=== PATIENT | female | born 1945 | race Hispanic/Latino ===

== ENCOUNTER 2018-01-29 20:29 | Emergency (ER) | payer OTHER ==
[~2018-01-29] VITALS: Ht 157.5 cm; Wt 83.9 kg
--- OUTSIDE RECORDS SUMMARY | 2018-01-29 20:32 | XMS REPORT ---
Author Author Dot Hall Organization [employer] Address Unknown Phone Unavailable Care Team Providers Care Safety Intern Name Role Phone Dot Hall CP Unavailable Allergies No Known Allergies Problems Problem Type Condition Code Onset Dates Condition Status Problem PVD (peripheral vascular disease) with claudication I73.9 Active Problem HTN (hypertension), benign I10 Active Assessment SOB (shortness of breath) R06.02 Active Assessment HTN (hypertension), benign I10 Active Assessment PVD (peripheral vascular disease) with claudication I73.9 Active Assessment Right lower quadrant abdominal pain R10.31 Active Medications No Known Medications Results No Known Results Summary Purpose [employer] Submission
--- OUTSIDE RECORDS SUMMARY | 2018-01-29 20:32 | XMS REPORT ---
Author Author Dot Hall Organization [employer] Address Unknown Phone Unavailable Care Team Providers Care Test Analyst Name Role Phone Dot Hall CP Unavailable Allergies, Adverse Reactions, Alerts Substance Reaction Event Type Tramadol HCl Info Not Available Drug Allergy Morphine Sulfate Info Not Available Drug Allergy Hydrocodone-Ibuprofen Info Not Available Drug Allergy Hydrocodone Bitartrate Info Not Available Drug Allergy Darvon Info Not Available Drug Allergy Darvocet A500 Info Not Available Drug Allergy Codeine Sulfate Info Not Available Drug Allergy Acetaminophen-Codeine #3 Info Not Available Drug Allergy Problems Problem Type Condition Code Onset Dates Condition Status Problem PVD (peripheral vascular disease) with claudication I73.9 Active Problem HTN (hypertension), benign I10 Active Assessment SOB (shortness of breath) R06.02 Active Assessment HTN (hypertension), benign I10 Active Assessment PVD (peripheral vascular disease) with claudication I73.9 Active Assessment Right lower quadrant abdominal pain R10.31 Active Medications Medication Code System Code Instructions Start Date End Date Status Dosage Metformin HCl ND 47650279532 1000 MG Orally Once a day Active 4 tablet with a meal Metoprolol Succinate ER ND 62814463826 25 MG Orally twice a day Active 1 tablet Aspirin 81 ND 52263734545 81 MG Orally Once a day Active 1 tablet Amlodipine Besylate ND 31648084741 5 MG Orally Once a day Active 1 tablet Gabapentin ND 85655824088 300 MG Orally Once a day Active 2 capsule Losartan Potassium ND 38762609314 100 MG Orally Once a day Active 1 tablet Nexium ND 60258485306 40 MG Orally Once a day Active 1 capsule Lasix ND 15930794891 20 MG Orally Once a day Active 1 tablet Clopidogrel Bisulfate ND 51271462172 75 MG Orally Once a day Active 1 tablet Vital Signs Date/Time: Jan 04, 2018 BMI 30.95 Index Weight 172 lbs Height 62.5 in Cardiac Monitoring Heart Rate 70 /min Blood Pressure Diastolic 80 mm Hg Blood Pressure Systolic 130 mm Hg Results No Known Results Summary Purpose [employer] Submission
--- OUTSIDE RECORDS SUMMARY | 2018-01-29 20:32 | XMS REPORT | Clinical Summary ---
Author Author [facility] Organization [facility] Address Unknown Phone Unavailable Care Team Providers Care Defense Analyst Name Role Phone Yuri Arrieta MD PCP Allergies Comments Active Allergy Reactions Severity Noted Date Clarithromycin 05/25/2013 Codeine 05/25/2013 Propoxyphene GI 05/25/2013 N-Acetaminophen Intolerance Propoxyphene GI 05/01/2016 Intolerance Meperidine GI Medium 05/01/2016 Intolerance Morphine GI Low 05/01/2016 Intolerance Critical Morphine Sulfate 02/19/2016 Tramadol 05/25/2013 Medications End Date Status Medication Sig Dispensed Refills Start Date Active metFORMIN (GLUCOPHAGE) Take 1,000 mg 0 500 mg tablet by mouth 2 6 (two) times a day. Active gabapentin (NEURONTIN) Take 1 0 300 mg capsule capsule by 6 mouth 2 (two) times a day. Active losartan (COZAAR) 100 MG Take 100 mg 0 tablet by mouth 7 every morning. Active esomeprazole (NexIUM) 40 Take 40 mg by 0 MG capsule mouth daily before breakfast. Active aspirin (ECOTRIN) 81 MG Take 81 mg by 0 enteric coated tablet mouth every morning. Active furosemide (LASIX) 20 mg Take 20 mg by 0 tablet mouth every 8 morning. Active metoprolol succinate XL Take 25 mg by 0 (TOPROL-XL) 25 mg 24 hr mouth every 8 tablet morning. 05/20/2018 Active oxybutynin XL (DITROPAN Take 1 tablet 30 tablet 3 XL) 10 MG 24 hr (10 mg total) 8 tabletIndications: by mouth Urinary urgency, Mixed daily. incontinence Active estradiol (ESTRACE) 0.01 Insert 0.5 42.5 g 1 % (0.1 mg/gram) vaginal gram 8 creamIndications: Vaginal vaginally atrophy every night for 2 weeks, then after insert 0.5 gram 3 times per week at night. Active amLODIPine (NORVASC) 5 mg Take 5 mg by 0 tablet mouth every morning. Active clopidogrel (PLAVIX) 75 Take 75 mg by 0 mg tablet mouth daily. 05/20/2017 Discontinued clopidogrel (PLAVIX) 75 Take 1 tablet 0 mg tablet by mouth 6 daily. 05/20/2017 Discontinued amLODIPine (NORVASC) 5 mg Take 5 mg by 0 tablet mouth daily. 06/14/2017 Discontinued amLODIPine (NORVASC) 10 0 mg tablet 7 05/20/2017 Discontinued pravastatin (PRAVACHOL) Take 10 mg by 0 10 MG tablet mouth. 7 05/20/2017 Discontinued esomeprazole (NexIUM) 40 Take 40 mg by 0 MG capsule mouth. 05/20/2017 Discontinued gabapentin (NEURONTIN) 0 300 mg capsule 6 05/20/2017 Discontinued losartan (COZAAR) 100 MG 0 tablet 7 05/20/2017 Discontinued metFORMIN (GLUCOPHAGE) Take 500 mg 0 500 mg tablet by mouth. 05/20/2017 Discontinued clotrimazole-betamethason Apply 45 g 0 e (LOTRISONE) 1-0.05 % topically 2 8 creamIndications: Tinea (two) times a Corporis day for 20 days. Active Problems Problem Noted Date Mesenteric ischemia 06/14/2017 Vaginal atrophy 05/20/2017 Fecal urgency 05/20/2017 Urinary urgency 05/20/2017 Mixed incontinence 05/20/2017 Incomplete bladder emptying 05/20/2017 Right lower quadrant pain 05/20/2017 Bladder spasms 05/06/2017 Encounters Care Team Description Date Type Specialty Laura Snell RN Records and 2 CDs received (Records and 2 CDs received) 09/21/2017 Documentation Cardiovascular Wan Geller MD Mesenteric ischemia (Primary Dx) 09/15/2017 Office Visit Cardiovascular Roxanna Willis 09/15/2017 Telephone Cardiovascular Laura Snell RN New Referral for Dr. Geller from Dr. Álvarez (New Referral for Dr. Geller from Dr. Álvarez) 08/31/2017 Documentation Cardiovascular Ezequiel Hall MD COLONOSCOPY & EGD 06/16/2017 Surgery Gastroenterology YouRajendra 06/16/2017 Anesthesia Gastroenterology Event Norma Arenas MD Kohlnhofer, Matthew, MD Mesenteric ischemia (Primary Dx) 06/14/2017 [facility] General Internal Medicine - Encounter 06/16/2017 Mirian Cohen MA 06/11/2017 Telephone Urogynecology Mirian Cohen MA 06/11/2017 Orders Only Urogynecology Anisa Foreman MD Abdominal pain, unspecified abdominal location (Primary Dx) 06/10/2017 Telephone Urogynecology Anisa Foreman MD 06/07/2017 Telephone Urogynecology Anisa Foreman MD Nocturia (Primary Dx); Vaginal atrophy; Fecal urgency; Urinary urgency; Mixed incontinence; Incomplete bladder emptying; Right lower quadrant pain 05/20/2017 Office Visit Urogynecology Alla Guerrier MD Screening breast examination 05/06/2017 Hospital Radiology Encounter Faviola Blackmon MD Pap smear for cervical cancer screening (Primary Dx); Tinea corporis; Bladder spasms; Hematuria, unspecified type; Urinary frequency 05/06/2017 Office Visit Obstetrics and Gynecology Alla Guerrier MD 05/06/2017 Transcribe Radiology Orders after 01/28/2017 Family History Medical History Relation Name Comments Heart disease Brother Colon polyps Brother Esophageal cancer Father Diabetes Mother Heart disease Mother Kidney disease Mother Breast cancer Sister Hepatitis Sister Relation Name Status Comments Brother Brother Alive Father Mother (Age 55) Sister Sister Alive Sister Alive Social History Date Tobacco Use Types Packs/Day Years Used Never Smoker Smokeless Tobacco: Never Used Alcohol Use Drinks/Week oz/Week Comments No Sex Assigned at Date Recorded Not on file Industry Job Start Date Occupation Not on file Not on file Not on file Travel End Travel History Travel Start No recent travel history available. Last Filed Vital Signs Time Taken Vital Sign Reading 09/15/2017 8:34 AM CDT Blood Pressure 146/69 09/15/2017 8:34 AM CDT Pulse 93 09/15/2017 8:34 AM CDT Temperature 36.3 C (97.3 F) 06/16/2017 11:39 AM CDT Respiratory Rate 20 06/16/2017 11:39 AM CDT Oxygen Saturation 95% - Inhaled Oxygen - Concentration 09/15/2017 8:34 AM CDT Weight 78.5 kg (173 lb) 09/15/2017 8:34 AM CDT Height 157.5 cm (5' 2") 09/15/2017 8:34 AM CDT Body Mass Index 31.64 Plan of Treatment Health Maintenance Due Date Last Done Comments COLON CANCER SCREENING 1997 SHINGRIX VACCINE (1 of 2) 1997 ZOSTER VACCINE 2007 PNEUMOCOCCAL 2012 POLYSACCHARIDE VACCINE AGE 65 AND OVER INFLUENZA VACCINE 09/29/2017 12/14/2015 BREAST CANCER SCREENING 05/07/2019 05/06/2017 PNEUMOCOCCAL-13 Completed 02/25/2016 Procedures Comments Procedure Name Priority Date/Time Associated Diagnosis ESOPHAGOGASTRODUODENOSCOP 06/16/2017 epigastric pain, history Y (EGD) 9:15 AM CDT of austin's esophagus COLONOSCOPY 06/16/2017 epigastric pain, history 9:15 AM CDT of austin's esophagus SURGICAL PATHOLOGY Routine 06/16/2017 REQUEST 7:24 AM CDT ZZESTIMATED GFR Routine 06/16/2017 4:14 AM CDT BASIC METABOLIC PANEL Routine 06/16/2017 4:14 AM CDT HC COMPLETE BLD COUNT Routine 06/16/2017 W/AUTO DIFF 4:14 AM CDT ZZESTIMATED GFR Routine 06/15/2017 5:12 AM CDT BASIC METABOLIC PANEL Routine 06/15/2017 5:12 AM CDT CBC WITH PLATELET AND Routine 06/15/2017 DIFFERENTIAL 5:12 AM CDT ANTI XA, UNFRACTIONATED Routine 06/14/2017 6:15 PM CDT LACTIC ACID LEVEL, SEPSIS Timed 06/14/2017 - NOW AND REPEAT 2X EVERY 4:00 PM CDT 3 HOURS TROPONIN Timed 06/14/2017 1:08 PM CDT LACTIC ACID LEVEL, SEPSIS Timed 06/14/2017 - NOW AND REPEAT 2X EVERY 1:08 PM CDT [address] ANGIOGRAM ABDOMEN STAT 06/14/2017 PELVIS W AND OR WO 12:44 PM CDT CONTRAST ZZESTIMATED GFR STAT 06/14/2017 9:48 AM CDT TROPONIN STAT 06/14/2017 9:48 AM CDT LIPASE LEVEL STAT 06/14/2017 9:48 AM CDT LACTIC ACID LEVEL, SEPSIS STAT 06/14/2017 - NOW AND REPEAT 2X EVERY 9:48 AM CDT 3 HOURS COMPREHENSIVE METABOLIC STAT 06/14/2017 PANEL 9:48 AM CDT TYPE AND SCREEN Routine 06/14/2017 9:48 AM CDT PARTIAL THROMBOPLASTIN STAT 06/14/2017 TIME (PTT) 9:48 AM CDT PROTHROMBIN TIME WITH INR STAT 06/14/2017 9:48 AM CDT HC COMPLETE BLD COUNT STAT 06/14/2017 W/AUTO DIFF 9:48 AM CDT ECG 12-LEAD STAT 06/14/2017 9:42 AM CDT POC URINALYSIS DIPSTICK Routine 05/20/2017 Nocturia 12:11 PM CDT MAMMO BREAST SCREEN Routine 05/06/2017 Screening breast TOMOSYNTHESIS BILATERAL 5:20 PM [employer]UM[employer] RELATIONS COORDINATOR examination PAP IG, RFX HPV ASCU Routine 05/06/2017 Pap smear for cervical 3:50 PM ALUMNI RELATIONS COORDINATOR cancer screening after 01/28/2017 Results * Surgical pathology request (06/16/2017 7:24 AM CDT) [facility] DEPARTMENT OF PATHOLOGY AND GENOMIC MEDICINE Surgical pathology report See link below for PDF Lab [facility] DEPARTMENT OF Report PATHOLOGY AND GENOMIC MEDICINE Result status This is Final Report to [facility] DEPARTMENT OF [id number] PATHOLOGY AND GENOMIC MEDICINE Performing Organization Address [facility] Phone Number [address] [place] [address] PATHOLOGY AND GENOMIC MEDICINE * Estimated GFR (06/16/2017 4:14 AM CDT) Only the most recent of 3 results within the time period is included. GFR Non Af Amer >90 mL/min/1.73 m2 [facility] DEPARTMENT OF PATHOLOGY AND GENOMIC MEDICINE GFR Af Amer >90 mL/min/1.73 m2 [facility] DEPARTMENT OF Comment: PATHOLOGY AND Chronic kidney disease: <60 GENOMIC MEDICINE mL/min/1.73m2 Kidney failure: <15 mL/min/1.73m2 The estimated GFR is calculated from the IDMS-traceable Modification of Diet in Renal Disease Equation. The accuracy of the calculation is poor when the creatinine is normal. Calculated values >90 mL/min/1.73m2 are not reported. This equation has not been validated in children (<18 years), women, the elderly (>70 years), or ethnic groups other than Caucasians and Americans. Specimen Plasma specimen Performing Organization Address [facility] Phone Number [address] [place] [address] PATHOLOGY AND [employer] [facility] * CBC with platelet and differential (06/16/2017 4:14 AM CDT) Only the most recent of 3 results within the time period is included. WBC 8.67 4.50 - 11.00 k/uL [facility] DEPARTMENT OF PATHOLOGY AND GENOMIC MEDICINE RBC 4.13 (L) 4.20 - 5.50 m/uL [facility] DEPARTMENT OF PATHOLOGY AND GENOMIC MEDICINE HGB 12.3 12.0 - 16.0 g/dL [facility] DEPARTMENT OF PATHOLOGY AND GENOMIC MEDICINE HCT 38.1 37.0 - 47.0 % [facility] DEPARTMENT OF PATHOLOGY AND GENOMIC MEDICINE MCV 92.3 82.0 - 100.0 fL [facility] DEPARTMENT OF PATHOLOGY AND GENOMIC MEDICINE MCH 29.8 27.0 - 34.0 pg [facility] DEPARTMENT OF PATHOLOGY AND GENOMIC MEDICINE MCHC 32.3 31.0 - 37.0 g/dL [facility] DEPARTMENT OF PATHOLOGY AND GENOMIC MEDICINE RDW - SD 43.3 37.0 - 55.0 fL [facility] DEPARTMENT OF PATHOLOGY AND GENOMIC MEDICINE MPV 11.0 8.8 - 13.2 fL [facility] DEPARTMENT OF PATHOLOGY AND GENOMIC MEDICINE Platelet count 235 150 - 400 k/uL [facility] DEPARTMENT OF PATHOLOGY AND GENOMIC MEDICINE Nucleated RBC 0.00 /100 WBC [facility] DEPARTMENT OF PATHOLOGY AND GENOMIC MEDICINE Neutrophils 51.5 39.0 - 69.0 % [facility] DEPARTMENT OF PATHOLOGY AND GENOMIC MEDICINE Lymphocytes 39.3 25.0 - 45.0 % [facility] DEPARTMENT OF PATHOLOGY AND GENOMIC MEDICINE Monocytes 5.9 0.0 - 10.0 % [facility] DEPARTMENT OF PATHOLOGY AND GENOMIC MEDICINE Eosinophils 2.8 0.0 - 5.0 % [facility] DEPARTMENT OF PATHOLOGY AND GENOMIC MEDICINE Basophils 0.3 0.0 - 1.0 % [facility] DEPARTMENT OF PATHOLOGY AND GENOMIC MEDICINE Specimen Blood Performing Organization Address City/State/Zipcode Phone Number [facility] [place] [address] [place] [address] PATHOLOGY AND GENOMIC MEDICINE * Basic metabolic panel (06/16/2017 4:14 AM CDT) Only the most recent of 2 results within the time period is included. Sodium 140 135 - 148 mEq/L [facility] DEPARTMENT OF PATHOLOGY AND GENOMIC MEDICINE Potassium 3.5 3.5 - 5.0 mEq/L [facility] DEPARTMENT OF PATHOLOGY AND GENOMIC MEDICINE Chloride 102 98 - 112 mEq/L [facility] DEPARTMENT OF PATHOLOGY AND GENOMIC MEDICINE CO2 26 24 - 31 mEq/L [facility] DEPARTMENT OF PATHOLOGY AND GENOMIC MEDICINE Anion gap 12 7 - 15 mEq/L [facility] DEPARTMENT OF Comment: PATHOLOGY AND Starting from May [facility] , anion gap calculation no longer incorporates potassium. Please note the change. BUN 9 8 - 23 mg/dL [facility] DEPARTMENT OF PATHOLOGY AND GENOMIC MEDICINE Creatinine 0.6 0.5 - 0.9 mg/dL [facility] DEPARTMENT OF PATHOLOGY AND GENOMIC MEDICINE Glucose 129 (H) 65 - 99 mg/dL [facility] DEPARTMENT OF PATHOLOGY AND GENOMIC MEDICINE Calcium 8.8 8.8 - 10.2 mg/dL [facility] DEPARTMENT OF PATHOLOGY AND GENOMIC MEDICINE Specimen Plasma specimen Performing Organization Address [facility] Phone Number [address] [place] [address] PATHOLOGY AND GENOMIC MEDICINE * Anti Xa, unfractionated (06/14/2017 6:15 PM CDT) Anti Xa, unfractionated <0.10 (L)Comment: Therapeutic 0.30 - 0.70 U/mL [facility] DEPARTMENT OF Range: 0.30 - 0.70 U/mL PATHOLOGY AND GENOMIC MEDICINE Specimen Blood Performing Organization Address [facility] Number [address] [place] [address] PATHOLOGY AND [employer] [facility] * Lactic acid level, SEPSIS - Now and repeat 2x every 3 hours (06/14/2017 4:00 PM CDT) Only the most recent of 3 results within the time period is included. Lactic acid 1.5 0.5 - 2.2 mmol/L [facility] DEPARTMENT OF PATHOLOGY AND [employer] [facility]ICINE Specimen Plasma specimen Performing Organization Address [facility] Number [address] [place] [address] PATHOLOGY AND [employer] [facility] * Troponin (06/14/2017 1:08 PM CDT) Only the most recent of 2 results within the time period is included. Troponin <0.300 0.000 - 0.300 ng/mL [facility] DEPARTMENT OF Comment: PATHOLOGY AND 0.30 - 1.49 GENOMIC MEDICINE ng/mlMay indicate increased risk of acute coronary syndrome. >=1.5 ng/ml Consistent with acute myocardial infarction. The diagnostic value of a single normal or non-diagnostic result is questionable.Serial samples at 2-6 hour intervals are required to rule out acute myocardial injury. Specimen Plasma specimen Performing Organization Address [facility] Phone Number [address] [place] [address] PATHOLOGY AND [employer] [facility] * CTA Abdomen Pelvis W And Or Wo Contrast (06/14/2017 12:44 PM CDT) Addenda Addendum by Lane Bingham MD on 06/14/2017 1:36 PM ADDENDUM #1 There is a high-grade stenosis of the superior mesenteric artery is not superficial femoral artery. This occurs 6 to 7 cm distal to the origin Narrative Performed At EXAMINATION:CT ANGIOGRAM ABDOMEN PELVIS W AND OR WO CONTRAST RADIANT CLINICAL HISTORY:ATHEROSCLERIOSISUNSPECIFIED, mesenteric ischemia TECHNIQUE: Multiple CT angiographic images of the abdomen and pelvis were obtained during intravenous administration of contrast. Multiple computerized reformatted images as well as 3-D volume rendered images were also obtained.Precontrast images of the abdomen were also obtained. COMPARISON:None. Visceral compartment: The lung bases demonstrate areas of mild groundglass attenuation greater in the posterior costophrenic sulci. These findings have appeared since the prior examination but are nonspecific but may be seen in inflammatory disease and heart failure. No specific changes of heart failure are identified however. The liver appears normal in size and homogeneous in texture. The adrenal glands, pancreas and kidneys appear within normal limits. There is moderate gas and stool present within the colon. The gallbladder is not visualized... The gallbladder fossa are consistent with a previous cholecystectomy. The uterus is not visualized. The ovaries are not visualized. There is diverticulosis There is calcification at the bladder base of uncertain etiology although minimally changed from previous plaster structures: There is no evidence of aneurysm or dissection. There is a densely calcified plaque and stenosis of on the order of 50% at the origin of the celiac axis. This is an ostial stenosis. The SMA has a stenosis of less than 50% at its origin however more distally there is a high-grade stenosis of 80% or greater of the SMA approximately 6 to 7 cm distal to its origin. The vessels distally however to opacify and complete occlusion is not present. The inferior mesenteric artery appears patent the limits of visualization although calcified plaque is present. The iliac and femoral circulations appear patent to the limits of visualization. IMPRESSION: 1. 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 Moderate stenosis although less than 50% of the celiac axis at its origin and a mild stenosis at the origin of the SMA. 3. Patency of the JONNY 3. Areas of groundglass attenuation at both lung bases which are nonspecific [id number] Procedure Note Interface, Radiology Results Incoming - 06/14/2017 1:21 PM CDT EXAMINATION: CT ANGIOGRAM ABDOMEN PELVIS W AND OR WO CONTRAST CLINICAL HISTORY: ATHEROSCLERIOSIS UNSPECIFIED, mesenteric ischemia TECHNIQUE: Multiple CT angiographic images of the abdomen and pelvis were obtained during intravenous administration of contrast. Multiple computerized reformatted images as well as 3-D volume rendered images were also obtained. Precontrast images of the abdomen were also obtained. COMPARISON: None. Visceral compartment: The lung bases demonstrate areas of mild groundglass attenuation greater in the posterior costophrenic sulci. These findings have appeared since the prior examination but are nonspecific but may be seen in inflammatory disease and heart failure. No specific changes of heart failure are identified however. The liver appears normal in size and homogeneous in texture. The adrenal glands, pancreas and kidneys appear within normal limits. There is moderate gas and stool present within the colon. The gallbladder is not visualized... The gallbladder fossa are consistent with a previous cholecystectomy. The uterus is not visualized. The ovaries are not visualized. There is diverticulosis There is calcification at the bladder base of uncertain etiology although minimally changed from previous plaster structures: There is no evidence of aneurysm or dissection. There is a densely calcified plaque and stenosis of on the order of 50% at the origin of the celiac axis. This is an ostial stenosis. The SMA has a stenosis of less than 50% at its origin however more distally there is a high-grade stenosis of 80% or greater of the SMA approximately 6 to 7 cm distal to its origin. The vessels distally however to opacify and complete occlusion is not present. The inferior mesenteric artery appears patent the limits of visualization although calcified plaque is present. The iliac and femoral circulations appear patent to the limits of visualization. IMPRESSION: 1. 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 Moderate stenosis although less than 50% of the celiac axis at its origin and a mild stenosis at the origin of the SMA. 3. Patency of the JONNY 3. Areas of groundglass attenuation at both lung bases which are nonspecific [id number] Performing Organization Address City/State/Zipcode Phone Number [facility] [address] [place] [address] * Partial thromboplastin time, activated (06/14/2017 9:48 AM CDT) PTT 31.9 23.0 - 36.0 sec [facility] DEPARTMENT OF Comment: PATHOLOGY AND PTT therapeutic range for [employer] [facility] unfractionated heparin is 61.0-112.0 seconds which corresponds to Anti-Xa 0.3-0.7 U/ml. Specimen Blood Performing Organization Address [facility] Phone Number [address] [place] [address] PATHOLOGY AND [facility] * Prothrombin time with INR (06/14/2017 9:48 AM CDT) Prothrombin time 12.8 12.0 - 15.0 sec [facility] DEPARTMENT OF PATHOLOGY AND GENOMIC MEDICINE INR 1.0 [facility] DEPARTMENT OF Comment: PATHOLOGY AND The International Normalized [facility] Ratio (INR) is a therapeutic monitoring tool for patients who are stable on oral anticoagulant therapy. An INR of 2.0-3.0 is suggested for deep vein thrombosis/pulmonary embolism. Specimen Blood Performing Organization Address [facility] Phone Number [address] [place] [address] PATHOLOGY AND GENOMIC MEDICINE * Type and screen (06/14/2017 9:48 AM CDT) ABO grouping O [facility] DEPARTMENT OF PATHOLOGY AND GENOMIC MEDICINE Rh type POS [facility] DEPARTMENT OF PATHOLOGY AND GENOMIC MEDICINE Antibody screen NEG [facility] DEPARTMENT OF PATHOLOGY AND GENOMIC MEDICINE Specimen Blood Performing Organization Address [facility] Phone Number [address] [place] [address] PATHOLOGY [facility] * Lipase level (06/14/2017 9:48 AM CDT) Lipase 36 13 - 60 U/L [facility] DEPARTMENT OF PATHOLOGY AND GENOMIC MEDICINE Specimen Plasma specimen Performing Organization Address [facility] Phone Number [address] [place] [address] PATHOLOGY AND [facility] * Comprehensive metabolic panel (06/14/2017 9:48 AM CDT) Sodium 141 135 - 148 mEq/L [facility] DEPARTMENT OF PATHOLOGY AND GENOMIC MEDICINE Potassium 3.8 3.5 - 5.0 mEq/L [facility] DEPARTMENT OF PATHOLOGY AND GENOMIC MEDICINE Chloride 99 98 - 112 mEq/L [facility] DEPARTMENT OF PATHOLOGY AND GENOMIC MEDICINE CO2 27 24 - 31 mEq/L [facility] DEPARTMENT OF PATHOLOGY AND GENOMIC MEDICINE Anion gap 15 7 - 15 mEq/L [facility] DEPARTMENT OF Comment: PATHOLOGY AND Starting from May [facility] , anion gap calculation no longer incorporates potassium. Please note the change. BUN 14 8 - 23 mg/dL [facility] DEPARTMENT OF PATHOLOGY AND GENOMIC MEDICINE Creatinine 0.6 0.5 - 0.9 mg/dL [facility] DEPARTMENT OF PATHOLOGY AND GENOMIC MEDICINE Glucose 172 (H) 65 - 99 mg/dL [facility] DEPARTMENT OF PATHOLOGY AND GENOMIC MEDICINE Calcium 9.8 8.8 - 10.2 mg/dL [facility] DEPARTMENT OF PATHOLOGY AND GENOMIC MEDICINE Protein 7.8 6.3 - 8.3 g/dL [facility] DEPARTMENT OF Comment: PATHOLOGY AND GENOMIC MEDICINE 4.6-7.0 g/dL 1 week 4.4-7.6 g/dL 7 months-1year 5.1-7.3 g/dL 1-2 years5.6-7 .5 g/dL >3 years6.0-8 .0 g/dL 18-150 6.3-8.3 g/dL Albumin 4.3 3.5 - 5.0 g/dL [facility] OF PATHOLOGY AND GENOMIC MEDICINE A/G ratio 1.2 0.7 - 3.8 [facility] OF PATHOLOGY AND GENOMIC MEDICINE Alkaline phosphatase 98 35 - 104 U/L [facility] DEPARTMENT OF PATHOLOGY AND GENOMIC MEDICINE AST 93 (H) 10 - 35 U/L [facility] DEPARTMENT OF PATHOLOGY AND GENOMIC MEDICINE ALT 121 (H) 5 - 50 U/L [facility] DEPARTMENT OF PATHOLOGY AND GENOMIC MEDICINE Total bilirubin 0.3 0.0 - 1.2 mg/dL [facility] DEPARTMENT OF PATHOLOGY AND GENOMIC MEDICINE Specimen Plasma specimen Performing Organization Address City/State/Zipcode Phone Number [facility] [address] [place] [address] PATHOLOGY AND GENOMIC MEDICINE * ECG 12 lead (06/14/2017 9:42 AM CDT) Ventricular rate 59 [facility] Atrial rate 59 [facility] ID interval 140 [facility] QRSD interval 96 [facility] QT interval 426 [facility] QTC interval 421 [facility] P axis 1 22 [facility] QRS axis 1 49 [facility] T wave axis 54 [facility] EKG impression Sinus bradycardia-Nonspecific [facility] MUSE T wave abnormality-Abnormal ECG-No previous ECGs available- Procedure Note Norma Arenas MD - 06/14/2017 9:05 AM CDT Emergency Department Provider Note Location: [facility] ED Patient ID: Iveth Porter is a 72 y.o. female. Chief Complaint Chief Complaint Patient presents with Groin Pain pain in right groin onset may 17. was seen by dr. foreman (urologist) and told it was intestinal ischemia and to follow up with surgeon. pt called dr. foster's office this am and they told her to come here. History of Present Illness Iveth Porter is a 72 y.o. female with HTN, DM, HLD p/w cc of right sided groin pain radiating down to her R leg onset since 05/17/17. Pt reports Dr. Foreman (urologist) told her it was intestinal ischemia and to follow up with surgeon. She was told by Dr. Foster's office to present to ED. History provided by: Patient inside technical sales representative used: No Groin Pain Onset quality: Gradual Duration: 1 month Timing: Constant Progression: Worsening Chronicity: New Severity: Moderate Location: R groin, radiates down R leg Relieved by: Nothing Associated symptoms: no abdominal pain, no chest pain, no congestion, no cough, no diarrhea, no ear pain, no fever, no headaches, no rash, no shortness of breath and no vomiting History Allergies Allergies Allergen Reactions Demerol [Meperidine] GI Intolerance Clarithromycin Codeine Darvocet A500 [Propoxyphene N-Acetaminophen] GI Intolerance Darvon [Propoxyphene] GI Intolerance Morphine Sulfate Critical Tramadol Morphine GI Intolerance Past Medical History Past Medical History: Diagnosis Date Acid reflux Blocked artery Diabetes mellitus Hyperlipidemia Hypertension Neuropathy Past Surgical History Past Surgical History: Procedure Laterality Date BLADDER REPAIR GALLBLADDER SURGERY HYSTERECTOMY TUMOR REMOVAL left breast Past Family History Family History Problem Relation Age of Onset Breast cancer Sister Colon polyps Brother Diabetes Mother Esophageal cancer Father Heart disease Mother Brother Hepatitis Sister Kidney disease Mother Past Social History Social History Social History Main Topics Smoking status: Never Smoker Smokeless tobacco: Never Used Alcohol use No Drug use: No Sexual activity: Yes Partners: Male control/ protection: Surgical Past Social History Narrative Social History Social History Narrative Patient denies history of sexual abuse and domestic violence. Medications Current Discharge Medication List CONTINUE these medications which have NOT CHANGED Details amLODIPine (NORVASC) 5 mg tablet Take 5 mg by mouth every morning. estradiol (ESTRACE) 0.01 % (0.1 mg/gram) vaginal cream Insert 0.5 gram vaginally every night for 2 weeks, then after insert 0.5 gram 3 times per week at night. Qty: 42.5 g, Refills: 1 Associated Diagnoses: Vaginal atrophy oxybutynin XL (DITROPAN XL) 10 MG 24 hr tablet Take 1 tablet (10 mg total) by mouth daily. Qty: 30 tablet, Refills: 3 Associated Diagnoses: Urinary urgency; Mixed incontinence aspirin (ECOTRIN) 81 MG enteric coated tablet Take 81 mg by mouth every morning. furosemide (LASIX) 20 mg tablet Take 20 mg by mouth every morning. metoprolol succinate XL (TOPROL-XL) 25 mg 24 hr tablet Take 25 mg by mouth every morning. esomeprazole (NexIUM) 40 MG capsule Take 40 mg by mouth daily before breakfast. gabapentin (NEURONTIN) 300 mg capsule Take 1 capsule by mouth 2 (two) times a day. losartan (COZAAR) 100 MG tablet Take 100 mg by mouth every morning. metFORMIN (GLUCOPHAGE) 500 mg tablet Take 1,000 mg by mouth 2 (two) times a day. Current Discharge Medication List Review of Systems Review of Systems Constitutional: Negative for chills and fever. HENT: Negative for congestion and ear pain. Respiratory: Negative for cough and shortness of breath. Cardiovascular: Negative for chest pain and leg swelling. Gastrointestinal: Negative for abdominal pain, diarrhea and vomiting. +R sided groin pain Genitourinary: Negative for dysuria and flank pain. Musculoskeletal: Negative for back pain and neck pain. Skin: Negative for color change and rash. Neurological: Negative for dizziness and headaches. All other systems reviewed and are negative. Physical Exam ED Triage Vitals [06/14/17 0856] Temp Heart Rate Respiratory Rate BP SpO2 97.8 F 85 18 174/72 100 % Temp Source Heart Rate Source Patient Position BP Location FiO2 % Oral Monitor Sitting -- -- Physical Exam Constitutional: She is oriented to person, place, and time. She appears well- developed and well-nourished. HENT: Head: Normocephalic. Eyes: Conjunctivae and EOM are normal. Pupils are equal, round, and reactive to light. No scleral icterus. Neck: Normal range of motion. Neck supple. Cardiovascular: Normal rate, regular rhythm, normal heart sounds and intact distal pulses. Pulmonary/Chest: Effort normal and breath sounds normal. Abdominal: Soft. Bowel sounds are normal. There is no tenderness. Musculoskeletal: Normal range of motion. She exhibits no tenderness. Neurological: She is alert and oriented to person, place, and time. No cranial nerve deficit. Skin: Skin is warm and dry. No rash noted. Psychiatric: She has a normal mood and affect. Nursing note and vitals reviewed. ED Course MDM MDM Number of Diagnoses or Management Options Mesenteric ischemia: new and requires workup Diagnosis management comments: Amount and/or Complexity of Data Reviewed Clinical lab tests: ordered and reviewed Tests in the radiology section of CPT: ordered and reviewed Tests in the medicine section of CPT: ordered and reviewed Review and summarize past medical records: yes Discuss the patient with other providers: yes Independent visualization of images, tracings, or specimens: yes Risk of Complications, Morbidity, and/or Mortality Presenting problems: moderate Diagnostic procedures: minimal Management options: moderate Patient Progress Patient progress: stable Labs Results for orders placed or performed during the hospital encounter of 06/14/17 CBC with platelet and differential Result Value Ref Range WBC 11.17 (H) 4.50 - 11.00 k/uL RBC 4.75 4.20 - 5.50 m/uL HGB 13.9 12.0 - 16.0 g/dL HCT 44.2 37.0 - 47.0 % MCV 93.1 82.0 - 100.0 fL MCH 29.3 27.0 - 34.0 pg MCHC 31.4 31.0 - 37.0 g/dL RDW - SD 44.5 37.0 - 55.0 fL MPV 11.6 8.8 - 13.2 fL Platelet count 309 150 - 400 k/uL Nucleated RBC 0.00 /100 WBC Neutrophils 49.3 39.0 - 69.0 % Lymphocytes 42.4 25.0 - 45.0 % Monocytes 5.5 0.0 - 10.0 % Eosinophils 2.1 0.0 - 5.0 % Basophils 0.4 0.0 - 1.0 % Prothrombin time with INR Result Value Ref Range Prothrombin time 12.8 12.0 - 15.0 sec INR 1.0 Partial thromboplastin time, activated Result Value Ref Range PTT 31.9 23.0 - 36.0 sec Type and screen Result Value Ref Range ABO grouping O Rh type POS Antibody screen NEG Comprehensive metabolic panel Result Value Ref Range Sodium 141 135 - 148 mEq/L Potassium 3.8 3.5 - 5.0 mEq/L Chloride 99 98 - 112 mEq/L CO2 27 24 - 31 mEq/L Anion gap 15 7 - 15 mEq/L BUN 14 8 - 23 mg/dL Creatinine 0.6 0.5 - 0.9 mg/dL Glucose 172 (H) 65 - 99 mg/dL Calcium 9.8 8.8 - 10.2 mg/dL Protein 7.8 6.3 - 8.3 g/dL Albumin 4.3 3.5 - 5.0 g/dL A/G ratio 1.2 0.7 - 3.8 Alkaline phosphatase 98 35 - 104 U/L AST 93 (H) 10 - 35 U/L ALT 121 (H) 5 - 50 U/L Total bilirubin 0.3 0.0 - 1.2 mg/dL Lactic acid level, SEPSIS - Now and repeat 2x every 3 hours Result Value Ref Range Lactic acid 2.4 (H) 0.5 - 2.2 mmol/L Lipase level Result Value Ref Range Lipase 36 13 - 60 U/L Troponin Result Value Ref Range Troponin <0.300 0.000 - 0.300 ng/mL Estimated GFR Result Value Ref Range GFR Non Af Amer >90 mL/min/1.73 m2 GFR Af Amer >90 mL/min/1.73 m2 Lactic acid level, SEPSIS - Now and repeat 2x every 3 hours Result Value Ref Range Lactic acid 1.9 0.5 - 2.2 mmol/L Lactic acid level, SEPSIS - Now and repeat 2x every 3 hours Result Value Ref Range Lactic acid 1.5 0.5 - 2.2 mmol/L Troponin Result Value Ref Range Troponin <0.300 0.000 - 0.300 ng/mL Anti Xa, unfractionated Result Value Ref Range Anti Xa, unfractionated <0.10 (L) 0.30 - 0.70 U/mL ECG 12 lead Result Value Ref Range Ventricular rate 59 Atrial rate 59 ID interval 140 QRSD interval 96 QT interval 426 QTC interval 421 P axis 1 22 QRS axis 1 49 T wave axis 54 EKG impression Sinus bradycardia-Nonspecific T wave abnormality-Abnormal ECG-No previous ECGs available- Radiology EXAMINATION: CT ANGIOGRAM ABDOMEN PELVIS W AND OR WO CONTRAST CLINICAL HISTORY: ATHEROSCLERIOSIS UNSPECIFIED, mesenteric ischemia TECHNIQUE: Multiple CT angiographic images of the abdomen and pelvis were obtained during intravenous administration of contrast. Multiple computerized reformatted images as well as 3-D volume rendered images were also obtained. Precontrast images of the abdomen were also obtained. COMPARISON: None. Visceral compartment: The lung bases demonstrate areas of mild groundglass attenuation greater in the posterior costophrenic sulci. These findings have appeared since the prior examination but are nonspecific but may be seen in inflammatory disease and heart failure. No specific changes of heart failure are identified however. The liver appears normal in size and homogeneous in texture. The adrenal glands, pancreas and kidneys appear within normal limits. There is moderate gas and stool present within the colon. The gallbladder is not visualized... The gallbladder fossa are consistent with a previous cholecystectomy. The uterus is not visualized. The ovaries are not visualized. There is diverticulosis There is calcification at the bladder base of uncertain etiology although minimally changed from previous plaster structures: There is no evidence of aneurysm or dissection. There is a densely calcified plaque and stenosis of on the order of 50% at the origin of the celiac axis. This is an ostial stenosis. The SMA has a stenosis of less than 50% at its origin however more distally there is a high-grade stenosis of 80% or greater of the SMA approximately 6 to 7 cm distal to its origin. The vessels distally however to opacify and complete occlusion is not present. The inferior mesenteric artery appears patent the limits of visualization although calcified plaque is present. The iliac and femoral circulations appear patent to the limits of visualization. IMPRESSION: 1. High-grade stenosis of the SMA approximately 6 to 7 cm distal to its origin from the aorta 2. Moderate stenosis although less than 50% of the celiac axis at its origin and a mild stenosis at the origin of the SMA. 3. Patency of the JONNY 3. Areas of groundglass attenuation at both lung bases which are nonspecific [id number] Procedures ECG 12 lead Date/Time: 06/14/2017 9:54 AM Performed by: NORMA ARENAS Authorized by: NORMA ARENAS ECG reviewed by ED Physician in the absence of a strategic account manager: yes Rate: ECG rate: 59 ECG rate assessment: bradycardic Rhythm: Rhythm: sinus bradycardia Ectopy: Ectopy: none QRS: QRS axis: Normal QRS intervals: Normal Conduction: Conduction: normal ST segments: ST segments: Normal T waves: T waves: normal Vitals: 06/14/17 1500 06/14/17 1545 06/14/17 1628 06/14/17 1629 BP: 97/54 146/65 151/67 BP Location: Right arm Right arm Right arm Pulse: 64 63 59 79 Resp: 18 20 17 Temp: 97.7 F 98 F TempSrc: Oral Oral SpO2: 98% 95% 98% Weight: Height: SpO2 performed at triage by standing order and reviewed Presentation 72 y.o. female presented to ED with abdominal pain Impression: Patient presentation suggests acute on chronic mesenteric ischemia Management: - No fever, pt not septic appearing - WBC 11L - Lactic acid down trended over 3 hours in ED from 2.4 to 1.9 - CTA as above - Pain controlled with fentanyl and IVF - Discussed with Kristin general surgery - Discussed with Ciro vascular surgery - Admitted with heparin gtt to internal medicine for further care Medications Prescribed: Current Discharge Medication List Future Appointments Date Time Provider Department Center 06/17/2017 3:00 PM Anisa Foreman MD [facility] [id number] Differential Diagnoses This patient has a differential diagnosis of intestinal ischemia. The differential diagnosis includes but not limited to UTI/cystitis, diverticulitis, intestinal ischemia/obstruction, ischemic/inflammatory/infectious colitis/enteritis, mesenteric adenitis, obstipation/constipation, hernia, nephrolithiasis, pyelonephritis, acute gastroenteritis. (In females it will include fibroids, endometritis, ovarian torsion, TOA, ovarian cysts, ectopic , endometriosis, mittelschmerz, ). DDX includes causes considered but not specified given they were low prob or unlikely to cause immediate or disability. Workup for unlisted, unlikely, or benign causes would likely have yielded harm exceeding benefit. Final Diagnoses Final diagnoses: Mesenteric ischemia Disposition This patient has a disposition of Admit. ED Attestations Scribe Attestation: This document is recorded by Lola Arndt acting as a scribe under the direction and presence of NORMA ARENAS Provider attestation of scribe: Oralia Arndt: I personally performed the services recorded by the scribe in my presence. I confirm the scribe's documentation has been reviewed by me to accurately record my work, treatment, procedures, and medical decision making. Oralia Arndt 06/14/17 0935 Oralia Arndt 06/14/17 0955 Norma Arenas MD 06/14/17 3605 Performing Organization Address City/State/[facility] Phone Number [facility] [address] [place] [address] * POC urinalysis dipstick (05/20/2017 12:11 PM CDT) Color urine, POC Yellow Clarity urine, POC Clear Glucose urine, POC Negative Negative Bilirubin urine, POC Negative Negative Ketones urine, POC Negative Negative Specific gravity urine, </=1.005 1.005 - 1.030 POC Blood urine, POC Negative Negative pH urine, POC 5.5 5.0, 5.5, 6.0, 6.5, 7.0, 7.5, 8.0, 8.5 Protein urine, POC Negative Negative Urobilinogen urine, POC <2.0 <2.0 Nitrite urine, POC Negative Negative Leukocyte esterase urine, Negative Negative POC Specimen Urine * Mammo Breast Screen Tomosynthesis Bilateral (05/06/2017 5:20 PM ALUMNI RELATIONS COORDINATOR) Narrative Performed At EXAMINATION: MAMMO BREAST SCREEN TOMOSYNTHESIS BILATERAL [facility] COMPARISON:No prior mammograms for provided for comparison TECHNIQUE: Bilateral digital screening mammography was performed with tomosynthesis and interpreted using computer-assisted detection. CLINICAL HISTORY: 72-year-old asymptomatic postmenopausal female with 3 year history of control use and 23 year history of estrogen use. The patient presents for routine screening. FINDINGS: There are scattered fibroglandular densities. There are symmetric bilateral secretory type and arterial vascular calcifications. There are no suspicious masses, calcifications or distortions in either breast. IMPRESSION: No specific mammographic features of breast malignancy. BI-RADS 2:BENIGN Recommend comparison with physical examination. In the absence of new clinical findings, the patient should return for bilateral screening mammography in 1 year.If prior outside mammograms become available for comparison, an addendum will be provided. This facility is accredited by the [employer] for Mammography. A negative x-ray report should not delay biopsy if a dominant or clinically suspicious mass is present.Not all cancers are identified by x-ray. [id number] Performing Organization Address City/State/Zipcode Phone Number [facility] [address] [place] [address] * Pap IG, rfx HPV ASCU (05/06/2017 3:50 PM ALUMNI RELATIONS COORDINATOR) Diagnosis CommentComment: NEGATIVE FOR [facility] INTRAEPITHELIAL LESION AND MALIGNANCY. Specimen adequacy Comment [facility] Comment: Satisfactory for evaluation.Endocervical and/or squamous metaplastic cells (endocervical component) are present. Clinician provided ICD10 CommentComment: Z12.4 [facility] Performed by: Comment [facility] Comment: Екатерина Oconnor, Supervisory Postal Superintendent (ASCP) Reviewed at: [facility] [address] [facility] [id number] Comment . [facility] Note: Comment [facility] Comment: The Pap smear is a screening test designed to aid in the detection of premalignant and malignant conditions of the uterine cervix.It is not a diagnostic procedure and should not be used as the sole means of detecting cervical cancer.Both false-positive and false-negative reports do occur. Test methodology Comment [facility] Comment: This liquid based ThinPrep(R) pap test was screened with the use of an image guided system. Reflex Comment [facility] Comment: The HPV DNA reflex criteria were not met with this specimen result therefore, no HPV testing was performed. Specimen Vaginal Narrative Performed At Performed at:01 - [facility] [address] [place], [id number] Supply Service Worker: Candace Downey MD, Phone:[phone] Specimen Comment: No. of containers..01 ThinPrep Vial Performing Organization Address City/State/Zipcode Phone Number [facility] after 01/28/2017 Insurance Payer Benefit Subscriber ID Type Phone Address Plan / Group [facility] xxxxxxxx PPO THCARE PPO- [employer] MEDICARE MEDICARE xxxxxxxxxx Medicare [place], [place] PART A Advance Directives Patient has advance care planning documents on file. For more information, lino ruiz contact: Maximino Jamil [address] [place] [place] [address]
--- OUTSIDE RECORDS SUMMARY | 2018-01-29 20:32 | XMS REPORT ---
Author Author Dot Hall Organization [employer] Address Unknown Phone Unavailable Care Team Providers Care Vulcanized Fiber Unit Operator Name Role Phone Dot Hall CP Unavailable Allergies No Known Allergies Problems Problem Type Condition Code Onset Dates Condition Status Problem PVD (peripheral vascular disease) with claudication I73.9 Active Problem HTN (hypertension), benign I10 Active Assessment Right lower quadrant abdominal pain R10.31 Active Medications No Known Medications Results No Known Results Summary Purpose [employer] Submission
--- OUTSIDE RECORDS SUMMARY | 2018-01-29 20:32 | XMS REPORT | Continuity of Care Document ---
Author Author Nancy andrea [facility] Interface Address Unknown Phone Unavailable Problems Problem Status Onset Date Classification Date Reported Comments Source PVD with claudication Active Problem 01/27/2018 [facility] HTN , benign Active Problem 01/27/2018 [facility] Right lower quadrant abdominal pain Active Diagnosis 01/27/2018 [facility] SOB Active Diagnosis 01/06/2018 [facility] Medications Medication Details Route Status Patient Instructions Ordering Provider Order Date Source Losartan Potassium 1 tablet Orally Active 100 MG Orally Once a day [facility] Metoprolol Succinate ER 1 tablet Orally Active 25 MG Orally twice a day [facility] Metformin HCl 4 tablet with a meal Orally Active 1000 MG Orally Once a day [facility] Gabapentin 2 capsule Orally Active 300 MG Orally Once a day [facility] Clopidogrel Bisulfate 1 tablet Orally Active 75 MG Orally Once a day [facility] Amlodipine Besylate 1 tablet Orally Active 5 MG Orally Once a day [facility] Lasix 1 tablet Orally Active 20 MG Orally Once a day [facility] Nexium 1 capsule Orally Active 40 MG Orally Once a day [facility] Aspirin 81 1 tablet Orally Active 81 MG Orally Once a day [facility] Allergies, Adverse Reactions, Alerts Substance Category Reaction Severity Reaction type Status Date Reported Comments Source Tramadol HCl Adverse Reaction Info Not Available Adverse Reaction Active 01/04/2018 [facility] Morphine Sulfate Adverse Reaction Info Not Available Adverse Reaction Active 01/04/2018 [facility] Hydrocodone-Ibuprofen Adverse Reaction Info Not Available Adverse Reaction Active 01/04/2018 [facility] Hydrocodone Bitartrate Adverse Reaction Info Not Available Adverse Reaction Active 01/04/2018 [facility] Codeine Sulfate Adverse Reaction Info Not Available Adverse Reaction Active 01/04/2018 [facility] Acetaminophen-Codeine #3 Adverse Reaction Info Not Available Adverse Reaction Active 01/04/2018 [facility] Darvon Adverse Reaction Info Not Available Adverse Reaction Active 01/04/2018 [facility] Darvocet A500 Adverse Reaction Info Not Available Adverse Reaction Active 01/04/2018 [facility] Immunizations Immunization Date Given Site Status Last Updated Comments Source Results Order Name Results Value Reference Range Date Interpretation Comments Source Vital Signs Vital Sign Value Date Comments Source Weight 172 01/04/2018 [facility] Height 62.5 01/04/2018 [facility] Heart Rate 70 01/04/2018 [facility] Diastolic (mm Hg) 80 01/04/2018 [facility] Systolic (mm Hg) 130 01/04/2018 [facility] Weight 172 12/22/2017 [facility] Height 62.5 12/22/2017 [facility] Heart Rate 80 12/22/2017 [facility] Diastolic (mm Hg) 60 12/22/2017 [facility] Systolic (mm Hg) 130 12/22/2017 [facility] Encounters Location Location Details Encounter Type Encounter Number Reason For Visit Attending Provider ADM Date DC Date Status Source Procedures Procedure Code Date Perfomer Comments Source
--- OUTSIDE RECORDS SUMMARY | 2018-01-29 20:32 | XMS REPORT | Clinical Summary ---
Author Author SATINDER [facility] Address Unknown Phone Unavailable Care Team Providers Care Legislative Analyst Name Role Phone Ger Iniguez MD PCP Allergies Comments Active Allergy Reactions Severity Noted Date Clarithromycin 05/25/2013 Codeine 05/25/2013 Propoxyphene 05/25/2013 N-Acetaminophen Morphine 05/25/2013 Tramadol 05/25/2013 Medications End Date Status Medication Sig Dispensed Refills Start Date Active aspirin 81 MG EC tablet Take 81 mg by 0 mouth daily. Active esomeprazole (NEXIUM) 40 Take 40 mg by 0 MG capsule mouth daily. Active nitroglycerin (NITRODUR) Place 1 patch 0 0.4 mg/hr patch onto the skin daily. Active dexlansoprazole 60 mg Take 60 mg by 0 capsule mouth daily. Active amlodipine-valsartan Take 1 tablet 0 (EXFORGE) 10-320 mg per by mouth tablet daily. Active clopidogrel (PLAVIX) 75 Take 75 mg by 0 mg tablet mouth daily. Active metFORMIN (GLUCOPHAGE) Take 500 mg 0 500 MG tablet by mouth 2 (two) times daily with breakfast and dinner. Active nitroglycerin (NITROSTAT) Place 0.4 mg 0 0.4 MG SL tablet under the tongue every 5 (five) minutes as needed. Active losartan (COZAAR) 100 MG 0 tablet 7 Active gabapentin (NEURONTIN) 0 300 MG capsule 6 Active aspirin 81 MG EC tablet Take 1 tablet 0 by mouth. Active amLODIPine (NORVASC) 5 MG 0 tablet 6 Active Problems Problem Noted Date Abnormal liver enzymes 04/23/2016 NAFLD (nonalcoholic fatty liver disease) 04/23/2016 Metabolic syndrome 04/23/2016 Immunity status testing 04/23/2016 Cancer screening 04/23/2016 Coronary arteriosclerosis 05/26/2013 Family History Medical History Relation Name Comments Diabetes Brother Heart disease Brother Cancer Father Diabetes Mother Heart disease Mother Cancer Sister Relation Name Status Comments Brother Father Mother Sister Social History Date Tobacco Use Types Packs/Day Years Used Never Smoker Alcohol Use Drinks/Week oz/Week Comments Yes Sex Assigned at Date Recorded Not on file Industry Job Start Date Occupation Not on file Not on file Not on file Travel End Travel History Travel Start No recent travel history available. Last Filed Vital Signs Not on file Plan of Treatment Health Maintenance Due Date Last Done Comments INFLUENZA VACCINE 11/29/2017 Results Not on fileafter 01/28/2017 Insurance Payer Benefit Subscriber ID Type Phone Address Plan / Group [facility] [employer] xxxxxxxx [facility] [employer] (Home) [place] [address] Advance Directives For more information, please contact: [facility] [address] [place] [address] Date Inactivated Comments Code Status Date Activated 05/26/2013 5:51 PM All possible means of support including;cardiac massage, mechanical ventilation, and defibrillation will be used to support life. Code ONE 05/26/2013 5:54 AM
--- OUTSIDE RECORDS SUMMARY | 2018-01-29 20:32 | XMS REPORT ---
Author [facility] Address Unknown Phone Unavailable Care Team Providers Care Medical Research Associate Name Role Phone TAWANNA UTE YAP Unavailable Unavailable Payers Payer Name Policy Type Policy Number Effective Date Expiration Date Problems This patient has no known problems. Allergies, Adverse Reactions, Alerts Allergy Name Allergy Type Status Severity Reaction(s) Onset Date Inactive Date Treating Clinician Comments meperidine HCl DA Active SV 2017-08-25 00:00:00 propoxyphene HCl DA Active SV 2017-08-25 00:00:00 propoxyphene napsylate DA Active SV 2017-08-25 00:00:00 morphine DA Active SV 2017-08-25 00:00:00 codeine DA Active SV 2017-08-25 00:00:00 tramadol DA Active DE 2017-08-25 00:00:00 Medications This patient has no known medications. Results Test Description Test Time Test Comments Text Results Atomic Results Result Comments VITAMIN D, 25-HYDROXY 2016-08-05 19:01:00 VITAMIN D 25-OH (BEAKER) (test phpb=9185) 14.0 ng/mL 13.0-47.8 ALPHA FETOPROTEIN (AFP), TUMOR [id number] 17:59:00* Test Item Value Reference Range Comments ALPHA-FETOPROTEIN (BEAKER) (test jeph=7716) < ng/mL <10.0 Effective 01/16/2014: Reference Range ChangeNew: <10.0 Previous: 0.0-8.0TSH 2016-08-05 17:57:00* Test Item Value Reference Range Comments THYROID STIMULATING HORMONE (NACHOAKER) (test jqnq=004) 3.86 uIU/mL 0.35-4.94 HEPATIC FUNCTION [id number] 17:20:00* Test Item Value Reference Range Comments TOTAL PROTEIN (BEAKER) (test hvof=963) 7.7 gm/dL 6.0-8.3 ALBUMIN (BEAKER) (test tczm=5897) 4.1 g/dL 3.5-5.0 BILIRUBIN TOTAL (BEAKER) (test bzyq=860) 0.5 mg/dL 0.2-1.2 BILIRUBIN DIRECT (BEAKER) (test bcqq=526) 0.2 mg/dL 0.1-0.5 ALKALINE PHOSPHATASE (BEAKER) (test gwju=251) 90 U/L 40-150 AST (SGOT) (BEAKER) (test jdtw=008) 46 U/L 5-34 ALT (SGPT) (BEAKER) (test qfzj=901) 74 U/L 6-55 BASIC METABOLIC [id number] 17:20:00* Test Item Value Reference Range Comments SODIUM (BEAKER) (test tyfq=161) 135 meq/L 136-145 POTASSIUM (BEAKER) (test pvpg=799) 4.5 meq/L 3.5-5.1 CHLORIDE (BEAKER) (test jnvi=327) 99 meq/L 98-107 CO2 (BEAKER) (test ukad=916) 24 meq/L 22-29 BLOOD UREA NITROGEN (BEAKER) (test xfjd=497) 13 mg/dL 7-21 CREATININE (BEAKER) (test tbdg=155) 0.71 mg/dL 0.57-1.25 GLUCOSE RANDOM (BEAKER) (test cvjr=040) 93 mg/dL 70-105 CALCIUM (BEAKER) (test gyyp=919) 9.6 mg/dL 8.4-10.2 EGFR (BEAKER) (test neco=2398) 82 mL/min/1.73 sq m ESTIMATED GFR IS NOT ACCURATE CREATININE CLEARANCE IN PREDICTING GLOMERULAR FILTRATION RATE. ESTIMATED GFR IS NOT APPLICABLE FOR DIALYSIS PATIENTS. PROTHROMBIN TIME/[id number] 16:59:00* Test Item Value Reference Range Comments PROTIME (BEAKER) (test zehy=127) 12.8 seconds 11.7-14.7 INR (BEAKER) (test ekxu=746) 1.0 <=5.9 RECOMMENDED COUMADIN/WARFARIN INR THERAPY RANGESSTANDARD DOSE: 2.0 - 3.0 Inclu hodan: PROPHYLAXIS for venous thrombosis, systemic embolization; TREATMENT for marjorie ous thrombosis and/or pulmonary embolus.HIGH RISK: Target INR is 2.5-3.5 for pat ients with mechanical heart valves.[id number] 16:59:00* Test Item Value Reference Range Comments PARTIAL THROMBOPLASTIN TIME (BEAKER) (test uyks=579) 30.0 seconds 22.5-36.0 CBC W/PLT COUNT & AUTO [id number] 16:49:00* Test Item Value Reference Range Comments WHITE BLOOD CELL COUNT (BEAKER) (test nplf=685) 11.4 K/ L 4.0-10.0 RED BLOOD CELL COUNT (BEAKER) (test mcsy=104) 4.52 M/ L 4.00-5.00 HEMOGLOBIN (BEAKER) (test fjmg=559) 13.8 GM/DL 12.0-15.0 HEMATOCRIT (BEAKER) (test xuya=740) 43.2 % 36.0-45.0 MEAN CORPUSCULAR VOLUME (BEAKER) (test ksmk=969) 95.7 fL 82.0-99.0 MEAN CORPUSCULAR HEMOGLOBIN (BEAKER) (test ebhy=803) 30.5 pg 27.0-33.0 MEAN CORPUSCULAR HEMOGLOBIN CONC (BEAKER) (test bfhh=351) 31.9 GM/DL 32.0-36.0 RED CELL DISTRIBUTION WIDTH (BEAKER) (test iham=570) 11.8 % 10.3-14.2 PLATELET COUNT (BEAKER) (test ihix=680) 303 K/CU MM 150-430 MEAN PLATELET VOLUME (BEAKER) (test efqi=509) 7.7 fL 6.5-10.5 NUCLEATED RED BLOOD CELLS (BEAKER) (test mzap=252) 0 /100 WBC 0-0 NEUTROPHILS RELATIVE PERCENT (BEAKER) (test imuf=422) 52 % LYMPHOCYTES RELATIVE PERCENT (BEAKER) (test dozt=003) 39 % MONOCYTES RELATIVE PERCENT (BEAKER) (test mbov=306) 6 % EOSINOPHILS RELATIVE PERCENT (BEAKER) (test kcxu=038) 2 % BASOPHILS RELATIVE PERCENT (BEAKER) (test foat=111) 1 % NEUTROPHILS ABSOLUTE COUNT (BEAKER) (test znnd=118) 5.94 K/ L 1.80-8.00 LYMPHOCYTES ABSOLUTE COUNT (BEAKER) (test ilxl=824) 4.47 K/ L 1.48-4.50 MONOCYTES ABSOLUTE COUNT (BEAKER) (test slju=768) 0.74 K/ L 0.00-1.30 EOSINOPHILS ABSOLUTE COUNT (BEAKER) (test wjwu=841) 0.21 K/ L 0.00-0.50 BASOPHILS ABSOLUTE COUNT (BEAKER) (test coek=730) 0.06 K/ L 0.00-0.20 0.00
--- OUTSIDE RECORDS SUMMARY | 2018-01-29 20:32 | XMS REPORT ---
Author Author Dot Hall Organization [employer] Address Unknown Phone Unavailable Care Team Providers Care Health Manager Name Role Phone Dot Hall CP Unavailable Allergies, Adverse Reactions, Alerts Substance Reaction Event Type Tramadol HCl Info Not Available Drug Allergy Morphine Sulfate Info Not Available Drug Allergy Hydrocodone-Ibuprofen Info Not Available Drug Allergy Hydrocodone Bitartrate Info Not Available Drug Allergy Codeine Sulfate [...] Instructions Start Date End Date Status Dosage Losartan Potassium ND 85413607858 100 MG Orally Once a day Active 1 tablet Metoprolol Succinate ER ND 06426408405 25 MG Orally twice a day Active 1 tablet Metformin HCl ND 03122758080 1000 MG Orally Once a day Active 4 tablet with a meal Gabapentin ND 42115922438 300 MG Orally Once a day Active 2 capsule Clopidogrel Bisulfate ND 93309866194 75 MG Orally Once a day Active 1 tablet Amlodipine Besylate ND 94015595964 5 MG Orally Once a day Active 1 tablet Lasix ND 45071088487 20 MG Orally Once a day Active 1 tablet Nexium ND 32057440348 40 MG Orally Once a day Active 1 capsule Vital Signs Date/Time: Dec 22, 2017 BMI 30.95 Index Weight 172 lbs Height 62.5 in Cardiac Monitoring Heart Rate 80 /min Blood Pressure Diastolic 60 mm Hg Blood Pressure Systolic 130 mm Hg Results No Known Results Summary Purpose [employer] Submission
--- OUTSIDE RECORDS SUMMARY | 2018-01-29 20:32 | XMS REPORT ---
Author Author Dot Hall Organization [employer] Address Unknown Phone Unavailable Care Team Providers Care Plant Etiologist Name Role Phone Dot Hall CP Unavailable [...] Instructions Start Date End Date Status Dosage Lasix ND 88016458655 20 MG Orally Once a day Active 1 tablet Metformin HCl ND 98462303205 1000 MG Orally Once a day Active 4 tablet with a meal Clopidogrel Bisulfate ND 26204723534 75 MG Orally Once a day Active 1 tablet Losartan Potassium ND 16084790093 100 MG Orally Once a day Active 1 tablet Metoprolol Succinate ER ND 92407248394 25 MG Orally twice a day Active 1 tablet Nexium ND 79369874511 40 MG Orally Once a day Active 1 capsule Gabapentin ND 65413865601 300 MG Orally Once a day Active 2 capsule Amlodipine Besylate ND 60113769809 5 MG Orally Once a day Active 1 tablet Results No Known Results Summary Purpose [employer] Submission
[2018-01-29] MEDS ORDERED: ACETAMINOPHEN 325 MG TAB PO ONE (21:00)
[2018-01-29] MEDS ORDERED: ACETAMINOPHEN 325 MG TAB ONE (21:00)
[2018-01-29 21:36] LABS: STREPTOCOCCUS GRP A ANTIGEN NEGATIVE (NEGATIVE)
[2018-01-29 21:44] LABS: INFLUENZAE A&B ANTIGEN (RAPID) NEGATIVE (NEGATIVE)
--- NOTE | 2018-01-29 22:05 | Diagnostic Imaging Report ---
EXAM: CHEST 2 VIEWS, PA and lateral INDICATION: Cough, congestion COMPARISON: PA and lateral view of the chest September 17, 2014 FINDINGS: LINES/TUBES: None LUNGS: No consolidations or edema. Stable bibasilar bronchial thickening. PLEURA: No effusions or pneumothorax. HEART AND MEDIASTINUM: Normal size and contour. BONES AND SOFT TISSUES: No acute findings. IMPRESSION: No consolidative pneumonia. Signed by: Dr. Marla Ureña M.D. on 01/29/2018 10:02 PM
[2018-01-29 23:19] VITALS: BP 134/87
== END 2018-01-29 23:41 | disposition home or self-care (01) ==
LOC: ER 20:29
DX: R50.9 Fever, unspecified (principal); R05 Cough; J00 Acute nasopharyngitis [common cold]; I10 Essential (primary) hypertension; E11.9 Type 2 diabetes mellitus without complications; E78.5 Hyperlipidemia, unspecified
CPT/HCPCS: 71046; 83518; 87070; 87400; 99283